=== PATIENT | female | born 2000 | race Caucasian/White ===

== ENCOUNTER 2023-06-18 17:39 | Inpatient (IN) ==
[2023-06-18 18:30] LABS: Basophils # (auto) 0.05 K/uL (0.00-0.20); Eosinophils # (auto) 0.09 K/uL (0.00-0.50); Eosinophils % (auto) 1.7 %; Immature Granulocytes # (auto) 0.01 K/uL (0.01-0.20); Immature Granulocytes % (auto) 0.2 %; Lymphocytes % (auto) 42.4 %; Mean Corpuscular Hemoglobin 29.8 pg (25.0-34.0); Mean Corpuscular Hgb Conc 34.1 g/dL (32.0-36.0); Mean Corpuscular Volume 87.5 fL (80.0-100.0); Mean Platelet Volume 10.8 fL (9.4-12.4); Monocytes # (auto) 0.31 K/uL (0.11-0.59); Neutrophils # (auto) 2.53 K/uL (1.40-6.50); Neutrophils % (auto) 48.7 %; Platelet Count 249 K/uL (130-400); RDW Coefficient of Variation 13.1 % (11.5-14.5); RDW Standard Deviation 41.8 fL (36.4-46.3); Red Blood Count 5.03 M/uL (4.20-5.40); White Blood Count 5.19 K/ul (4.8-10.8)
[2023-06-18 18:36] LABS: Pregnancy Test, Urine Negative (Negative)
[2023-06-18 18:42] LABS: Appearance Urine Clear (Clear); Bilirubin Urine Negative (Negative); Blood Urine 3+ (Negative); Color Urine Dark Yellow; Epithelial Cell Urine Auto >30 /lpf (0-5); Glucose Urine UA Negative (Negative); Ketones Urine Negative (Negative); Leukocyte Esterase Urine Negative (Negative); Nitrite Urine Negative (Negative); Protein Urine Negative (Negative); Specific Gravity Urine 1.025 (1.000-1.030); Urobilinogen Urine Negative (Negative); pH Urine 5.5 (4.5-7.5)
[2023-06-18 18:46] LABS: Albumin Globulin Ratio 1.4 (0.9-2); Albumin Level 4.6 gm/dl (3.4-5.0); Bilirubin,Total 0.6 mg/dl (0.2-1.0); Calcium 9.8 mg/dl (8.6-10.3); Creatinine Clr Calc Pharmacy 114.4 ml/min; Est GFR (African American) 131.1 ml/min; Est GFR (Non-African American) 113.1 ml/min; Globulin 3.2 gm/dl (2.5-4.0); Potassium 3.5 mmol/L (3.5-5.1); Total Protein 7.8 gm/dl (6.0-8.3)
[2023-06-18 18:52] LABS: Thyroid Stimulating Hormone 0.796 uIu/ml (0.300-4.500)
[2023-06-18 18:58] LABS: Bacteria Urine Automated 1+ (Negative); Mucus Urine Present (None Prsent)
[2023-06-18 19:18] LABS: Amphetamines+Metham, Urine Neg (Neg); Barbiturates, Urine Neg (Neg); Benzodiazepine, Urine Neg (Neg); Cocaine, Urine Neg (Neg); MDMA (Ecstacy), Urine Neg (Neg); Marijuana, Urine Neg (Neg); Methadone, Urine Neg (Neg); Opiate, Urine Neg (Neg); Phencyclidine, Urine Neg (Neg)
[2023-06-18 20:01] LABS: Acetaminophen < 3 ug/ml (10-30); Salicylate < 3.0 mg/dl (3.0-30)
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
[2023-06-19] MEDS ORDERED: ACETAMINOPHEN 325 MG TAB PO PRN (00:17)
[2023-06-19] MEDS ORDERED: hydrOXYzine HCl 25 MG TAB PO PRN ×2 (00:17)
[2023-06-19] MEDS ORDERED: MAGNESIUM HYDROXIDE SUSP 30 ML UDC PO PRN (00:17)
[2023-06-19] MEDS ORDERED: SODIUM CHLORIDE 0.65% NA SOLN 45 ML (OCEAN) PRN (00:17)
[2023-06-19] MEDS ORDERED: BISMUTH SUBSALICYLATE LIQD 236 ML PO PRN (00:17)
[2023-06-19] MEDS ORDERED: ALUMINUM/MAGNESIUM SUSP 30 ML UDC PO PRN (00:17)
[2023-06-19] MEDS: NON-FORMULARY PATIENT'S OWN MED PO SCH (08:36)
[2023-06-19] MEDS: FLUoxetine HCL 10 MG CAP PO SCH (15:34)
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
[2023-06-21] MEDS: FLUoxetine HCL 20 MG CAP PO SCH (09:06)
--- NOTE | 2023-06-21 10:22 | Psychiatric Progress Note ---
Date of Service June 21, 2023 Impression / Recommendations Impression 23 yo female with hx of depression, anxiety, and trauma who presented with SI and since started Prozac. Overall, I spent a total of 42 minutes with this case, including review of chart, direct evaluation of the patient, counseling patient, coordination of care with nursing, and documentation. (1) Major depressive disorder, recurrent severe without psychotic features: (2) Suicidal ideations: (3) Generalized anxiety disorder: (4) Trauma and stressor-related disorder: Plan 06/21/23: reconsented for trial of Prozac. Risks/benefits/alternatives reviewed re: antidepressants for the treatment of depression and/or anxiety. Discussion included but was not limited to FDA warnings re: suicidality in adolescents and young adults. 06/20/23: We will continue with her current level of observation and precautions. I increased the fluoxetine to 20 mg daily starting tomorrow, June 21. I encouraged the patient to take part in our therapeutic milieu, attend groups and activities, maintain good hygiene, and try hard not to isolate. She will continue to communicate with her family and her fianc. She is eager to try to discharge on Friday because she has to coal picker her boyfriend at the airport on Friday. I told her that is a reasonable goal but not a promise. Before she discharges, it will be important to reevaluate the situation and the stressors and supports that she will have when she goes back to school next week. 06/19/23: 1. We will continue with her current level of observation and precautions. She is here voluntarily on the psychiatric unit and will take part in our therapeutic milieu, attend groups and activities, maintain good hygiene, and try not to isolate. 2. We will start fluoxetine 10 mg daily for a couple of days and then probably go to 20 mg daily to try to help with her depression and anxiety symptoms. I reviewed the uses, side effects, and time course with the patient and she gave informed consent. 3. Disposition is still unclear. We will need to determine if she is safe enough to go back to her studies and stay here in [place] or if she will need to go with family or her fianc. We will try to have some type of family meeting or meeting with her fianc before she discharges. 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 She was admitted he was admitted late on 06/18/23 on a 201 voluntary commitment. Chief Complaint "last night was oK" Review of Systems Sleep Information Total Hours of Sleep: 5.5 Sleep Comments: new admission overnight Meal Information Percent Meal Consumed - Breakfast: 90 Percent Meal Consumed - Lunch: 100 Percent Meal Consumed - Dinner: 100 Subjective Subjective Patient was seen & assessed and interval progress reviewed nursing and social work. The patient remains quiet. States that her depressive symptoms seem to be worse as the day goes on but indicated that she did not have SI last night and is increasingly future focussed with regards to seeing her fiance for a week starting 06/24/23. She feels she is tolerating her Prozac pretty well with transient epigastic pain after breakfast this am. Currently in no distress. Physical Exam Psychiatric Orientation: alert and oriented x 3 Apperance: appropriately dressed and appropriately groomed Eye Contact: good eye contact Motor Behavior: no abnormal motor movements Speech: normal rate/rhythm/volume of speech Affect: + depressed affect Mood: + depressed mood Thought Process: goal directed thought process Thought Content: reality based without delusions Suicidal Thoughts: denies suicidal thoughts Homicidal Thoughts: denies homicidal thoughts Hallucinations: no auditory hallucinations and no visual hallucinations Cognition: attention grossly intact and language grossly intact Estimated Intelligence: consistent with education level Insight: + limited insight Judgment: + limited judgement Vital Signs (Past 24 Hours) Last Vital Signs Temp 36.6 C 06/21/23 06:41 Pulse 76 06/21/23 06:43 Resp 16 06/21/23 06:41 BP 106/70 06/21/23 06:43 Pulse Ox 99 06/19/23 06:00 O2 Del Method Room Air 06/19/23 06:00 Results & Data ([facility]) Current Inpatient Medications Current Inpatient Medications: Current Inpatient Medications Acetaminophen (Acetaminophen 325 Mg Tab) 650 mg PO Q4H PRN PRN Reason: Headache or Minor Fever Stop: 07/19/23 00:16 Al Hydrox/Mg Hydrox/Simethicone (Aluminum/Magnesium Susp 30 Ml Udc) 30 ml PO Q4H PRN PRN Reason: GI Upset Stop: 07/19/23 00:16 Bismuth Subsalicylate (Bismuth Subsalicylate Liqd 236 Ml) 15 ml PO PRN PRN PRN Reason: Loose Stool Stop: 07/19/23 00:16 Fluoxetine HCl (Fluoxetine Hcl 20 Mg Cap) 20 mg PO QAM FLAVIO Stop: 07/21/23 08:59 Last Admin: 06/21/23 09:06 Dose: 20 mg Hydroxyzine HCl (Hydroxyzine Hcl 25 Mg Tab) 50 mg PO HSZ PRN PRN Reason: Insomnia Stop: 07/19/23 00:16 Hydroxyzine HCl (Hydroxyzine Hcl 25 Mg Tab) 25 mg PO Q4H PRN PRN Reason: Anxiety Stop: 07/19/23 00:16 Magnesium Hydroxide (Magnesium Hydroxide Susp 30 Ml Udc) 30 ml PO DAILY PRN PRN Reason: Constipation Stop: 07/19/23 00:16 Non-Formulary Medication (Non-Formulary Patient's Own Med) 1 each PO Q24H FLAVIO Stop: 07/19/23 08:59 Last Admin: 06/21/23 09:06 Dose: 1 ea Sodium Chloride (Sodium Chloride 0.65% Na Soln 45 Ml ([employer])) 1 - 2 sprays NA PRN PRN PRN Reason: Nasal Dryness/Congestion Stop: 07/19/23 00:16 Mental Health & Subst Abuse Tx Therapist Name of Therapist: [facility] - Julia Wood Therapist's Date of Therapist Appointment: 06/26/23 Time of Therapist Appointment: 2:00 PM Therapy Appointment Comment: [facility] - [place] [id number] Wax Specialist Name of Wax Specialist: [facility] Phone Number for Wax Specialist: [phone] Date of Appointment with Wax Specialist: 06/25/23 Time of Appointment with Wax Specialist: 9:00 AM Case Management Appointment Comment: A link will be sent to your student e-mail. Post Discharge Appointments Primary Care Physician Name Of Family Doctor/PCP: [facility] - MARCELLA Nevarez Primary Care Date of Future Appointment with PCP: 07/03/23 Time of Appointment with PCP: 11:05 AM - Please complete paperwork and bring it with you. Provider Appointment Comment: [address], [place] [address] Contact Information Discharge Discharge Address: [address] [place] [address], [address], [place] [address]
--- NOTE | 2023-06-22 13:08 | Psychiatric Progress Note ---
Date of Service June 22, 2023 Impression / Recommendations Impression 23 yo female with hx of depression, anxiety, and trauma who presented with SI and since started Prozac. Overall, I spent a total of 35 minutes with this case, including review of chart, direct evaluation of the patient, counseling patient, coordination of care with nursing, and documentation. (1) Major depressive disorder, recurrent severe without psychotic features: (2) Suicidal ideations: (3) Generalized anxiety disorder: (4) Trauma and stressor-related disorder: Plan 06/22/23: continue current meds and tx plan. family meeting and safety planning. 06/21/23: reconsented for trial of Prozac. Risks/benefits/alternatives reviewed re: antidepressants for the treatment of depression and/or anxiety. Discussion included but was not limited to FDA warnings re: suicidality in adolescents and young adults. 06/20/23: We will continue with her current level of observation and precautions. I increased the fluoxetine to 20 mg daily starting tomorrow, June 21. I encouraged the patient to take part in our therapeutic milieu, attend groups and activities, maintain good hygiene, and try hard not to isolate. She will continue to communicate with her family and her fianc. She is eager to try to discharge on Friday because she has to garbage pick up man her boyfriend at the airport on Friday. I told her that is a reasonable goal but not a promise. Before she discharges, it will be important to reevaluate the situation and the stressors and supports that she will have when she goes back to school next week. 06/19/23: 1. We will continue with her current level of observation and precautions. She is here voluntarily on the psychiatric unit and will take part in our therapeutic milieu, attend groups and activities, maintain good hygiene, and try not to isolate. 2. We will start fluoxetine 10 mg daily for a couple of days and then probably go to 20 mg daily to try to help with her depression and anxiety symptoms. I reviewed the uses, side effects, and time course with the patient and she gave informed consent. 3. Disposition is still unclear. We will need to determine if she is safe enough to go back to her studies and stay here in [place] or if she will need to go with family or her fianc. We will try to have some type of family meeting or meeting with her fianc before she discharges. 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 She was admitted he was admitted late on 06/18/23 on a 201 voluntary commitment. Chief Complaint "i'm making progress". Review of Systems Sleep Information Total Hours of Sleep: 7.5 Sleep Comments: new admission overnight Meal Information Percent Meal Consumed - Breakfast: 100 Percent Meal Consumed - Lunch: 90 Percent Meal Consumed - Dinner: 90 Subjective Subjective Patient was seen & assessed and interval progress reviewed with nursing and social work. patient denies medication related side effects. Is feeling "a little better." has some anxiety around logistics of discharge and meeting with boyfriend, apparently some strain in relationship. Physical Exam Psychiatric Orientation: alert and oriented x 3 Apperance: appropriately dressed and appropriately groomed Eye Contact: good eye contact Motor Behavior: no abnormal motor movements Speech: normal rate/rhythm/volume of speech Affect: + depressed affect Mood: + depressed mood Thought Process: goal directed thought process Thought Content: reality based without delusions Suicidal Thoughts: denies suicidal thoughts Homicidal Thoughts: denies homicidal thoughts Hallucinations: no auditory hallucinations and no visual hallucinations Cognition: attention grossly intact and language grossly intact Estimated Intelligence: consistent with education level Vital Signs (Past 24 Hours) Last Vital Signs Temp 36.8 C 06/22/23 06:33 Pulse 86 06/22/23 06:33 Resp 16 06/22/23 06:33 BP 108/70 06/22/23 06:33 Pulse Ox 99 06/19/23 06:00 O2 Del Method Room Air 06/19/23 06:00 Results & Data ([facility]) Current Inpatient Medications Current Inpatient Medications: Current Inpatient Medications Acetaminophen (Acetaminophen 325 Mg Tab) 650 mg PO Q4H PRN PRN Reason: Headache or Minor Fever Stop: 07/19/23 00:16 Al Hydrox/Mg Hydrox/Simethicone (Aluminum/Magnesium Susp 30 Ml Udc) 30 ml PO Q4H PRN PRN Reason: GI Upset Stop: 07/19/23 00:16 Bismuth Subsalicylate (Bismuth Subsalicylate Liqd 236 Ml) 15 ml PO PRN PRN PRN Reason: Loose Stool Stop: 07/19/23 00:16 Fluoxetine HCl (Fluoxetine Hcl 20 Mg Cap) 20 mg PO QAM FLAVIO Stop: 07/21/23 08:59 Last Admin: 06/22/23 08:54 Dose: 20 mg Hydroxyzine HCl (Hydroxyzine Hcl 25 Mg Tab) 50 mg PO HSZ PRN PRN Reason: Insomnia Stop: 07/19/23 00:16 Hydroxyzine HCl (Hydroxyzine Hcl 25 Mg Tab) 25 mg PO Q4H PRN PRN Reason: Anxiety Stop: 07/19/23 00:16 Magnesium Hydroxide (Magnesium Hydroxide Susp 30 Ml Udc) 30 ml PO DAILY PRN PRN Reason: Constipation Stop: 07/19/23 00:16 Non-Formulary Medication (Non-Formulary Patient's Own Med) 1 each PO Q24H FLAVIO Stop: 07/19/23 08:59 Last Admin: 06/22/23 08:54 Dose: 1 ea Sodium Chloride (Sodium Chloride 0.65% Na Soln 45 Ml ([place])) 1 - 2 sprays NA PRN PRN PRN Reason: Nasal Dryness/Congestion Stop: 07/19/23 00:16 Mental Health & Subst Abuse Tx Therapist Name of Therapist: [facility] - Julia Wood Therapist's Date of Therapist Appointment: 06/26/23 Time of Therapist Appointment: 2:00 PM Therapy Appointment Comment: [facility] - [place], [place] [address] Teletypesetter Monitor Name of Teletypesetter Monitor: [facility] Phone Number for Teletypesetter Monitor: [phone] Date of Appointment with Teletypesetter Monitor: 06/25/23 Time of Appointment with Teletypesetter Monitor: 9:00 AM Case Management Appointment Comment: A link will be sent to your student e-mail. Post Discharge Appointments Primary Care Physician Name Of Family Doctor/PCP: [facility] - MARCELLA Nevarez Primary Care Date of Future Appointment with PCP: 07/03/23 Time of Appointment with PCP: 11:05 AM - Please complete paperwork and bring it with you. Provider Appointment Comment: [address] [place] [address] [address], [place] [address] Contact Information Discharge Discharge Address: [address] [place] [address], [address], [place] [address]
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
== END 2023-06-23 11:04 | disposition home or self-care (01) | DRG 885 ==
LOC: ED 17:39 → SUATTDRO 22:34 → 3S 22:34